=== PATIENT | male | born 1980 | race Caucasian/White ===

== ENCOUNTER 2018-04-23 17:39 | Emergency (ER) | payer BC ==
--- NOTE | 2018-04-23 18:29 | EKG ---
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
[2018-04-23 18:31] LABS: Absolute Lymphocytes (CBC) 1.4 K/uL (0.7-4.9); Absolute Monocytes 0.8 K/uL (0.1-1.3); Absolute Neutrophil 5.7 K/uL (1.8-8.0); Basophils % 0.7 % (0-1.3); Eosinophils % 1.5 % (0-4.4); Hematocrit 43.6 % (39.6-49.0); Lymphocytes % 17.5 % (15.3-44.8); MCH 31.9 pg (27.0-35.0); MPV 10.5 fL (7.6-11.3); Monocytes % 9.8 % (3.3-12.3); RBC Red Blood Cell Count 4.59 M/uL (4.33-5.43)
[2018-04-23 18:37] LABS: Protime INR 0.84
--- NOTE | 2018-04-23 18:48 | RAD REPORT ---
EXAM DESCRIPTION: Sabino Single View04/23/2018 6:43 pm CLINICAL HISTORY: Chest pain COMPARISON: none FINDINGS: The lungs appear clear of acute infiltrate. The heart is normal size IMPRESSION: No acute abnormalities displayed
[2018-04-23 18:51] LABS: Potassium 3.7 mEq/L (3.6-5.0)
[2018-04-23 18:57] LABS: Albumin 4.2 g/dL (3.2-5.5); Bilirubin Direct 0.1 mg/dL (0-0.2); Bilirubin Total 0.6 mg/dL (0.3-1.2); Magnesium 2.2 mg/dL (1.8-2.5); Protein, Total 7.2 g/dL (6.0-8.3)
--- NOTE | 2018-04-23 19:41 | EDPHYS ---
Physician Documentation [facility] Name: Serge Mcnally Age: 37 yrs Sex: Male : 1980 Arrival Date: 04/23/2018 Time: 17:42 Bed 16 Private MD: [facility] ED Physician Jack Smith HPI: 04/23 19:21 This 37 yrs old Male presents to ER via Ambulatory with complaints of Chest kav Pain, Numbness Of Arm. 19:21 This 37 yrs old Male presents to ER via Ambulatory with complaints of Chest kav Pain, Numbness Of Arm. 19:21 Onset: The symptoms/episode began/occurred acutely. Associated signs and symptoms: The kav patient has no apparent associated signs or symptoms. Modifying factors: The patient symptoms are alleviated by nothing, the patient symptoms are aggravated by nothing. The patient has not recently seen a physician. 19:34 The patient or guardian reports chest pain that is located primarily in the left kav breast. The pain does not radiate. Associated signs and symptoms: Pertinent positives: None. diaphoresis, nausea, Pertinent negatives: dizziness, headache, lower extremity pain, lower extremity swelling, lightheadedness, near syncope, palpitations, recent travel, shortness of breath, syncope, vomiting. The chest pain is described as dull. Duration: The patient or guardian reports multiple episodes, the episodes last approximately 10 second(s). Modifying factors: The symptoms are alleviated by nothing. the symptoms are aggravated by nothing. Severity of pain: At its worst the pain was moderate just prior to arrival. The patient has experienced a previous episode, approximately 2 months ago. patient reports chest pain at rest with radiating pain down left upper extremity. Historical: - Allergies: 17:50 No Known Allergies; aa5 - PMHx: 17:50 GERD; Anxiety; aa5 - PSHx: 17:50 None; aa5 - Immunization history:: Adult Immunizations up to date. - Social history:: Smoking status: Patient/guardian denies using tobacco, Patient uses alcohol, on a daily basis. "couple shots and a 6 pack a day", "last night" was the last time he drank. - Ebola Screening: : No symptoms or risks identified at this time. ROS: 19:36 Constitutional: Negative for fever, chills, and weight loss, Eyes: Negative for injury, kav pain, redness, and discharge, ENT: Negative for injury, pain, and discharge, Neck: Negative for injury, pain, and swelling, Respiratory: Negative for shortness of breath, cough, wheezing, and pleuritic chest pain, Abdomen/GI: Negative for abdominal pain, nausea, vomiting, diarrhea, and constipation, Back: Negative for injury and pain, : Negative for injury, bleeding, discharge, and swelling, MS/Extremity: Negative for injury and deformity, Skin: Negative for injury, rash, and discoloration, Neuro: Negative for headache, weakness, numbness, tingling, and seizure, Psych: Negative for depression, anxiety, suicide ideation, homicidal ideation, and hallucinations, Allergy/Immunology: Negative for hives, rash, and allergies, Endocrine: Negative for neck swelling, polydipsia, polyuria, polyphagia, and marked weight changes, Hematologic/Lymphatic: Negative for swollen nodes, abnormal bleeding, and unusual bruising. 19:36 Neck: Positive for pain at rest, tenderness, of the left breast. Exam: 19:36 Constitutional: This is a well developed, well nourished patient who is awake, alert, kav and in no acute distress. Head/Face: Normocephalic, atraumatic. Eyes: Pupils equal round and reactive to light, extra-ocular motions intact. Lids and lashes normal. Conjunctiva and sclera are non-icteric and not injected. Cornea within normal limits. Periorbital areas with no swelling, redness, or edema. ENT: Nares patent. No nasal discharge, no septal abnormalities noted. Tympanic membranes are normal and external auditory canals are clear. Oropharynx with no redness, swelling, or masses, exudates, or evidence of obstruction, uvula midline. Mucous membranes moist. Neck: Trachea midline, no thyromegaly or masses palpated, and no cervical lymphadenopathy. Supple, full range of motion without nuchal rigidity, or vertebral point tenderness. No Meningismus. Chest/axilla: Normal chest wall appearance and motion. Nontender with no deformity. No lesions are appreciated. Respiratory: Lungs have equal breath sounds bilaterally, clear to auscultation and percussion. No rales, rhonchi or wheezes noted. No increased work of breathing, no retractions or nasal flaring. Abdomen/GI: Soft, non-tender, with normal bowel sounds. No distension or tympany. No guarding or rebound. No evidence of tenderness throughout. Back: No spinal tenderness. No costovertebral tenderness. Full range of motion. Skin: Warm, dry with normal turgor. Normal color with no rashes, no lesions, and no evidence of cellulitis. MS/ Extremity: Pulses equal, no cyanosis. Neurovascular intact. Full, normal range of motion. Neuro: Awake and alert, GCS 15, oriented to person, place, time, and situation. Cranial nerves II-XII grossly intact. Motor strength 5/5 in all extremities. Sensory grossly intact. Cerebellar exam normal. Normal gait. Psych: Awake, alert, with orientation to person, place and time. Behavior, mood, and affect are within normal limits. 19:36 Cardiovascular: Rate: normal. 19:36 Cardiovascular: Rate: actual rate is 70 bpm, Rhythm: regular, Pulses: Pulses are 2+ in . Heart sounds: normal, normal S1and S2, Edema: is not appreciated, JVD: is not appreciated. 19:36 ECG was reviewed by the Attending Physician. normal sinus rhythm Vital Signs: 17:51 BP 133 / 100; Pulse 79; Resp 18 S; Temp 98.8(TE); Pulse Ox 99% on R/A; Weight 99.79 kg aa5 (R); Height 5 ft. 9 in. (175.26 cm) (R); Pain 1/10; 18:54 BP 124 / 87; Pulse 77; Resp 18; Pulse Ox 99% on R/A; mt 19:52 BP 132 / 98; Pulse 76; Resp 16; Pulse Ox 98% on R/A; mt 20:09 BP 127 / 87; Pulse 79; Resp 19; Pulse Ox 97% on R/A; aj1 17:51 Body Mass Index 32.49 (99.79 kg, 175.26 cm) aa5 MDM: 19:14 Medical screening is not applicable. [facility] 19:36 ECG:. Data reviewed: vital signs, nurses notes. [facility] 04/23 18:14 Order name: Basic Metabolic Panel; Complete Time: : kdr 04/23 19:20 Interpretation: Normal except: GFR 87. [facility] 04/23 18:14 Order name: BNP; Complete Time: kdr 04/23 19:20 Interpretation: Within normal limits. [facility] 04/23 18:14 Order name: CBC with Diff; Complete Time: 19:19 kdr 04/23 19:20 Interpretation: Within normal limits. [facility] 04/23 18:14 Order name: LFT's; Complete Time: 19:19 kdr 04/23 19:20 Interpretation: Within normal limits. [facility] 04/23 18:14 Order name: Magnesium; Complete Time: 19:19 kdr 04/23 19:20 Interpretation: Within normal limits. [facility] 04/23 18:14 Order name: PT-INR; Complete Time: 19:19 kdr 04/23 19:20 Interpretation: Within normal limits. [facility] 04/23 18:05 Order name: EKG Electrocardiogram [facility] 04/23 18:14 Order name: Ptt, Activated; Complete Time: 19:19 kdr 04/23 19:20 Interpretation: Within normal limits. [facility] 04/23 18:14 Order name: Troponin (emerg Dept Use Only); Complete Time: 19:19 kdr 04/23 19:20 Interpretation: Within normal limits. [facility] 04/23 18:14 Order name: XRAY Chest (1 view); Complete Time: 19:20 kdr 04/23 19:21 Interpretation: No acute disease. [facility] 04/23 18:14 Order name: Cardiac monitoring; Complete Time: 18:16 kdr 04/23 18:14 Order name: EKG - Nurse/Tech; Complete Time: 18:17 kdr 04/23 18:14 Order name: IV Saline Lock; Complete Time: 18:17 kdr 04/23 18:14 Order name: Labs collected and sent; Complete Time: 18:17 [facility] 04/23 18:14 Order name: O2 Per Protocol; Complete Time: 18:17 [facility] 04/23 18:14 Order name: O2 Sat Monitoring; Complete Time: 18:17 kdr 04/23 18:14 Order name: Urine Dipstick-Ancillary (obtain specimen); Complete Time: 18:16 kdr EC:36 Rate is 70 beats/min. Rhythm is regular. QRS [place] is Normal. IA interval is normal. QRS kav interval is normal. No Q waves. T waves are Normal. No ST changes noted. Clinical impression: Normal ECG. Administered Medications: No medications were administered Disposition: 04/24 07:27 Co-signature as Attending Physician, Jack Smith MD I agree with the assessment and kdr plan of care. Disposition: 04/23/18 19:40 Discharged to Home. Impression: Chest pain, unspecified. - Condition is Stable. - Discharge Instructions: Nonspecific Chest Pain, Chest Wall Pain, Electrocardiography, [place]. - Prescriptions for Ibuprofen 800 mg Oral Tablet - take 1 tablet by ORAL route every 8 hours As needed take with food; 30 tablet. - Medication Reconciliation Form, Thank You Letter, Antibiotic Education, Prescription Opioid Use form. - Follow up: Fredrick Khan DO; When: 2 - 3 days; Reason: Recheck today's complaints, Continuance of care, Re-evaluation by your physician. Follow up: Ricki Dawson MD; When: 1 - 2 days; Reason: Recheck today's complaints, Continuance of care, Re-evaluation by your physician. - Problem is new. - Symptoms have improved. - Notes: please follow-up with cardiology in 5-7 days for full cardiac work-up including echocardiography and cardiac stress test Signatures: Dispatcher [employer] EDVaishali Garcia RN RN aj1 Jack Smith MD MD kdr Vern, Katherine, RADIAL ROUTER OPERATOR RADIAL ROUTER OPERATOR Telma Lara RN RN aa5 Clarissa Cardenas RN RN tw2 Corrections: (The following items were deleted from the chart) 04/23 20:13 19:40 04/23/2018 19:40 Discharged to Home. Impression: Chest pain, unspecified. aj1 Condition is Stable. Forms are Medication Reconciliation Form, Thank You Letter, Antibiotic Education, Prescription Opioid Use. Follow up: Fredrick Khan; When: 2 - 3 days; Reason: Recheck today's complaints, Continuance of care, Re-evaluation by your physician. Follow up: Ricki Dawson; When: 1 - 2 days; Reason: Recheck today's complaints, Continuance of care, Re-evaluation by your physician. Problem is new. Symptoms have improved. kabhavna
--- NOTE | 2018-04-23 19:41 | ER ---
Nurse's Notes [facility] Name: Serge Mcnally Age: 37 yrs Sex: Male : 1980 Arrival Date: 04/23/2018 Time: 17:42 Bed 16 Private MD: Fredrick Khan Diagnosis: Chest pain, unspecified Presentation: 04/23 17:49 Presenting complaint: Patient states: left-sided chest pain with left arm numbness. Pt aa5 reports chest pain is episodic only lasting a few seconds. Pt also reports SOB and feeling lightheaded. Pt reports symptoms began 3 days ago. Transition of care: patient was not received from another setting of care. Onset of symptoms was March 2018. Risk Assessment: Do you want to hurt yourself or someone else? Patient reports no desire to harm self or others. Initial Sepsis Screen: Does the patient meet any 2 criteria? No. Patient's initial sepsis screen is negative. Does the patient have a suspected source of infection? No. Patient's initial sepsis screen is negative. Care prior to arrival: None. 17:49 Method Of Arrival: Ambulatory aa5 17:49 Acuity: SOPHIE 3 aa5 Historical: - Allergies: 17:50 No Known Allergies; aa5 - PMHx: 17:50 GERD; Anxiety; aa5 - PSHx: 17:50 None; aa5 - Immunization history:: Adult Immunizations up to date. - Social history:: Smoking status: Patient/guardian denies using tobacco, Patient uses alcohol, on a daily basis. "couple shots and a 6 pack a day", "last night" was the last time he drank. - Ebola Screening: : No symptoms or risks identified at this time. Screenin:12 Abuse screen: Denies threats or abuse. Nutritional screening: No deficits noted. tw2 Tuberculosis screening: No symptoms or risk factors identified. Fall Risk None identified. Assessment: 18:10 General: Appears in no apparent distress. well groomed, Behavior is calm, cooperative, tw2 appropriate for age. Pain: Complains of pain in chest Pain radiates to left arm Pain began 2-3 days ago. Neuro: Level of Consciousness is awake, alert, obeys commands, Oriented to person, place, time, situation. Cardiovascular: Reports chest pain, Denies shortness of breath, Heart tones S1 S2 Capillary refill < 3 seconds Patient's skin is warm and dry. Respiratory: Airway is patent Respiratory effort is even, unlabored, Respiratory pattern is regular, symmetrical, Breath sounds are clear bilaterally. GI: No signs and/or symptoms were reported involving the gastrointestinal system. Abdomen is flat, non-distended, Bowel sounds present X 4 quads. : No signs and/or symptoms were reported regarding the genitourinary system. EENT: No signs and/or symptoms were reported regarding the EENT system. Derm: No signs and/or symptoms reported regarding the dermatologic system. Musculoskeletal: Range of motion: intact in all extremities. 19:10 Reassessment: Patient and/or family updated on plan of care and expected duration. Pain aj1 level reassessed. General: Appears in no apparent distress. comfortable, Behavior is calm, cooperative, appropriate for age. Neuro: Level of Consciousness is awake, alert, obeys commands, Oriented to person, place, time, situation. Cardiovascular: Patient's skin is warm and dry. Respiratory: Airway is patent Respiratory effort is even, unlabored, Respiratory pattern is regular, symmetrical. 20:12 Reassessment: Patient appears in no apparent distress at this time. No changes from aj1 previously documented assessment. Patient and/or family updated on plan of care and expected duration. Pain level reassessed. Patient is alert, oriented x 3, equal unlabored respirations, skin warm/dry/pink. Vital Signs: 17:51 BP 133 / 100; Pulse 79; Resp 18 S; Temp 98.8(TE); Pulse Ox 99% on R/A; Weight 99.79 kg aa5 (R); Height 5 ft. 9 in. (175.26 cm) (R); Pain 1/10; 18:54 BP 124 / 87; Pulse 77; Resp 18; Pulse Ox 99% on R/A; mt 19:52 BP 132 / 98; Pulse 76; Resp 16; Pulse Ox 98% on R/A; mt 20:09 BP 127 / 87; Pulse 79; Resp 19; Pulse Ox 97% on R/A; aj1 17:51 Body Mass Index 32.49 (99.79 kg, 175.26 cm) aa5 ED Course: 17:42 Patient arrived in ED. mr 17:42 Fredrick Khan, is Private Physician. mr 17:50 Triage completed. aa5 17:50 Arm band placed on. aa5 17:55 Clarissa Cardenas, RN is Primary Nurse. tw2 18:00 Placed in gown. Bed in low position. Adult w/ patient. teletypesetter monitor on. Pulse ox on. tw2 NIBP on. 18:02 EKG done, by emergency medical technician/driver. reviewed by Jack Smith MD. sm3 18:09 No provider procedures requiring assistance completed. Inserted saline lock: 20 gauge tw2 in left antecubital area, using aseptic technique. Blood collected. Patient maintains SpO2 saturation greater than 95% on room air. 18:14 Jack Smith MD is Attending Physician. kdr 18:42 X-ray completed. Portable x-ray completed in exam room. Patient tolerated procedure kc2 well. 18:43 XRAY Chest (1 view) In Process Unspecified. EDMS 18:58 Stephanie Rodriguez FNP is PHCP. kav 19:20 Report given to ENDER Doty. tw2 19:39 Fredrick Khan DO is Referral Physician. kav 19:40 Ricki Dawson MD is Referral Physician. kav 20:10 IV discontinued, intact, bleeding controlled, No redness/swelling at site. Pressure aj1 dressing applied. Administered Medications: No medications were administered Outcome: 19:40 Discharge ordered by . kav 20:12 Discharged to home ambulatory. aj1 20:12 Condition: good 20:12 Discharge instructions given to patient, Instructed on discharge instructions, follow up and referral plans. medication usage, Demonstrated understanding of instructions, follow-up care, medications, Prescriptions given X 1. 20:13 Patient left the ED. aj1 Signatures: Dispatcher [employer] EDAK Vaishali Birch, ENDER RN aj1 Jack Smith MD MD kdr Vern, Katherine, FNP MARKETING ADMINISTRATIVE ASSISTANT Marci Stockton Telma Lee, RN RN aa5 Clarissa Cardenas, ENDER RN 2 Ana Solis 2 Brigida Damon mt, Shakira 3
== END 2018-04-23 20:13 | disposition home or self-care (01) ==
LOC: ER 17:39
DX: R07.9 Chest pain, unspecified (principal); K21.9 Gastro-esophageal reflux disease without esophagitis; F41.9 Anxiety disorder, unspecified
CPT/HCPCS: 36415; 71045; 80048; 80076; 83735; 83880; 84484; 85025; 85610; 85730; 93005; 99285